=== PATIENT | male | born 1985 | race Caucasian/White ===

== ENCOUNTER 2019-04-01 02:42 | Emergency (ER) | payer SELFPAY ==
[~2019-04-01] VITALS: Ht 172.7 cm; Wt 77.1 kg
[2019-04-01 02:45] VITALS: BP 138/74
[2019-04-01] MEDS ORDERED: LORazepam Inj 2mg/ml 1ml IV ONE ×2 (02:45→04:15)
[2019-04-01] MEDS ORDERED: LR 1000ml 1,000 ML IV ONE ×2 (02:45)
[2019-04-01 02:55] LABS: BASOPHILS % (AUTO) 0.6 % (0.0-2.0); EOSINOPHILS % (AUTO) 0.3 % (0.0-3.0); HEMATOCRIT 43.1 % (42.0-52.0); HEMOGLOBIN 14.9 G/DL (14.2-18.0); LYMPHOCYTES % (AUTO) 9.2 % (20.0-45.0); MEAN CORPUSCULAR VOLUME 86 FL (80-99); MONOCYTES % (AUTO) 5.9 % (1.0-10.0); NEUTROPHILS % (AUTO) 83.9 % (45.0-75.0); PLATELET COUNT 230 K/UL (150-450); RED BLOOD COUNT 5.03 M/UL (4.70-6.10); WHITE BLOOD COUNT 10.5 K/UL (4.8-10.8)
--- NOTE | 2019-04-01 02:55 | NUR ---
ED Nurse Note: Patient leatha accompanied by 's department with a medical clearance, patient is agitated, and was found attempting [place] run [place], complains of right arm pain. patient admits to injecting himself with meth a couple hours ago.
--- NOTE | 2019-04-01 03:00 | NUR ---
ED Nurse Note: Urine and blood sample sent to lab.
--- NOTE | 2019-04-01 03:00 | Emergency Room Report ---
History of Present Illness General Chief Complaint: Medical Clearance Source: Patient Present Illness HPI 33-year-old male presents with acute altered mental status, patient states he may have taken some amphetamines, [place], patient denies any chest pain shortness of breath, he has no acute complaints he states he does not want to be the enemy severity is severe, symptoms are constant aggravated by methamphetamine, characterization is acute altered mental status and agitation alleviating factors none onset was unknown Allergies: Coded Allergies: No Known Allergies (Unverified , 04/01/19) Patient History Past Medical History: see triage record Reviewed Nursing Documentation: PMH: Agreed; PSxH: Agreed Nursing Documentation-PMH Past Medical History: No History, Except For Review of Systems All Other Systems: limited - By methamphetamine use Physical Exam Vital Signs Date Time Temp Pulse Resp B/P (MAP) Pulse Ox O2 Delivery O2 Flow Rate FiO2 04/01/19 02:32 98.2 120 14 138/74 (95) 98 Room Air Sp02 EP Interpretation: reviewed, normal General Appearance: well appearing, no apparent distress, alert Head: normocephalic, atraumatic Eyes: bilateral eye PERRL, bilateral eye EOMI ENT: uvula midline, moist mucus membranes Neck: supple, thyroid normal, supple/symm/no masses Respiratory: lungs clear, no respiratory distress, no retraction, no accessory muscle use Cardiovascular #1: normal peripheral pulses, no edema, no gallop, no murmur, tachycardia Gastrointestinal: non tender, soft, no guarding, no rebound Musculoskeletal: normal inspection Neurologic: alert, oriented x3 Psychiatric: anxious Skin: no rash, warm/dry Medical Decision Making Diagnostic Impression: Primary Impression: Methamphetamine abuse ER Course 33-year-old male presents with acute methamphetamine intoxication, patient initially agitated unable to give a history. Reevaluation at 4:24 AM, patient back to baseline, heart rate is reducing, patient counseled that methamphetamine is bad for him Patient has no acute complaints at this time Disposition home with return precautions Laboratory Tests Test 04/01/19 02:40 04/01/19 03:00 White Blood Count 10.5 K/UL (4.8-10.8) Red Blood Count 5.03 M/UL (4.70-6.10) Hemoglobin 14.9 G/DL (14.2-18.0) Hematocrit 43.1 % (42.0-52.0) Mean Corpuscular Volume 86 FL (80-99) Mean Corpuscular Hemoglobin 29.6 PG (27.0-31.0) Mean Corpuscular Hemoglobin Concent 34.5 G/DL (32.0-36.0) Red Cell Distribution Width 11.0 % (11.6-14.8) L Platelet Count 230 K/UL (150-450) Mean Platelet Volume 6.3 FL (6.5-10.1) L Neutrophils (%) (Auto) 83.9 % (45.0-75.0) H Lymphocytes (%) (Auto) 9.2 % (20.0-45.0) L Monocytes (%) (Auto) 5.9 % (1.0-10.0) Eosinophils (%) (Auto) 0.3 % (0.0-3.0) Basophils (%) (Auto) 0.6 % (0.0-2.0) Sodium Level 143 MMOL/L (136-145) Potassium Level 4.4 MMOL/L (3.5-5.1) Chloride Level 105 MMOL/L (98-107) Carbon Dioxide Level 25 MMOL/L (21-32) Anion Gap 13 mmol/L (5-15) Blood Urea Nitrogen 19 mg/dL (7-18) H Creatinine 1.5 MG/DL (0.55-1.30) H Estimate Glomerular Filtration Rate 53.3 mL/min (>60) Glucose Level 125 MG/DL (74-106) H Calcium Level 9.5 MG/DL (8.5-10.1) Urine Opiates Screen Negative (NEGATIVE) Urine Barbiturates Screen Negative (NEGATIVE) Phencyclidine (PCP) Screen Negative (NEGATIVE) Urine Amphetamines Screen Positive (NEGATIVE) H Urine Benzodiazepines Screen Positive (NEGATIVE) H Urine Cocaine Screen Negative (NEGATIVE) Urine Marijuana (THC) Screen Negative (NEGATIVE) EKG Diagnostic Results EKG Time: 03:10 EP Interpretation: 115 Rate: tachycardiac Rhythm: other - sinus tachycardia ST Segments: no acute changes Rhythm Strip Diag. Results Rhythm Strip Time: 03:10 EP Interpretation: yes Rate: 106 Rhythm: no PVC's, no ectopy, other - sinus tachycardia Chest X-Ray Diagnostic Results Chest X-Ray Diagnostic Results : Chest X-Ray Ordered: Yes # of Views/Limited/Complete: 1 View Indication: Other - AMS EP Interpretation: Yes Interpretation: no consolidation, no effusion, no pneumothorax, no acute cardiopulmonary disease Impression: No acute disease Electronically Signed by: Hiro Solo MD Last Vital Signs Date Time Temp Pulse Resp B/P (MAP) Pulse Ox O2 Delivery O2 Flow Rate FiO2 04/01/19 02:45 120 14 Room Air 04/01/19 02:45 98.2 138/74 98 Disposition: HOME, SELF-CARE Condition: Stable Referrals: [facility] Patient Instructions: Stimulant Use Disorder-Amphetamines, Stimulant Use Disorder-Methamphetamines Additional Instructions: The patient was provided with discharge instructions, notified to follow-up with a primary care doctor and or specialist in the next 24-48 hours, and to return to the ED if they have worsening of their symptoms. Please note that this report is being documented using DRAGON technology. This can lead to erroneous entry secondary to incorrect interpretation by the dictating instrument. Hiro Solo MD Apr 01, 2019 03:00
[2019-04-01 03:03] LABS: ANION GAP 13 mmol/L (5-15); BLOOD UREA NITROGEN 19 mg/dL (7-18); CALCIUM 9.5 MG/DL (8.5-10.1); CARBON DIOXIDE 25 MMOL/L (21-32); CHLORIDE 105 MMOL/L (98-107); CREATININE 1.5 MG/DL (0.55-1.30); POTASSIUM 4.4 MMOL/L (3.5-5.1); SODIUM 143 MMOL/L (136-145)
--- NOTE | 2019-04-01 03:30 | NUR ---
ED Nurse Note: Pt removed IV access, insert a new one.
[2019-04-01] MEDS ORDERED: Haloperidol 5mg/ml Inj IM ONE (04:15)
[2019-04-01] MEDS ORDERED: DiphenhydrAMINE 50mg/ml Inj IVP ONE (04:15)
--- NOTE | 2019-04-01 05:06 | NUR ---
ED Nurse Note: Pt asleep when visited, HR 98, RR 17
[2019-04-01 05:07] VITALS: BP 128/75
[2019-04-01 06:35] VITALS: BP 132/69
--- NOTE | 2019-04-01 06:37 | NUR ---
ED Nurse Note: Pt asleep when visited, VSS. Provided more blanket.
[2019-04-01 08:33] VITALS: BP 130/69
--- NOTE | 2019-04-01 08:37 | NUR ---
ED Nurse Note:pt. is still sleeping no signs of distress noted
--- NOTE | 2019-04-01 09:10 | NUR ---
ED Nurse Note: JOESPH Myers received a phone call from Gerard Leon, radha and said that she will come and pharmacy picking tech the patient. (contact number:
[2019-04-01 10:00] VITALS: BP 130/69
--- NOTE | 2019-04-01 10:02 | NUR ---
ER DISCHARGE NOTE: Patient is cleared to be discharged per ERMD, pt is aox4, on room air, with stable vital signs. pt was given dc instructions, pt was able to verbalize understanding, pt is able to ambulate with steady gait. pt took all belongings, was picked up by friend
--- NOTE | 2019-04-01 16:52 | Diagnostic Imaging Report ---
Indication: Chest pain Technique: One view of the chest Comparison: none Findings: The right lower chest is cut off of the exam, despite repeat images; per technologist, patient unable to cooperate optimally with positioning. The lungs and pleural spaces are clear. The heart size is normal. Impression: Limited; no definite acute process
== END 2019-04-01 10:00 | disposition home or self-care (01) ==
LOC: EDBD 02:42 → EMR 03:05
DX: F15.10 Other stimulant abuse, uncomplicated (principal); R41.82 Altered mental status, unspecified
CPT/HCPCS: 36415; 71045; 80048; 80307; 85025; 93005; 96361; 96372; 96374; 96375; 96376; 99284; J1200; J1630; J2250